=== PATIENT | female | born 1985 | race Caucasian/White ===

== ENCOUNTER 2016-11-29 14:15 | Outpatient (CLI) | payer BC ==
--- NOTE | 2016-11-29 17:52 | DIAGNOSTIC IMAGING REPORT ---
PROCEDURE: US OB 1ST TRIMESTER W/TRANSVAG INDICATION: NO HEART TONES TECHNIQUE: Mata scale, color, and spectral Doppler transabdominal sonographic images of the first trimester gravid uterus were obtained. COMPARISON: None. FINDINGS: Transvaginal and transabdominal SCANS: The gravid uterus is retroverted in position and contains hemorrhage and clot surrounding an irregular gestational sac. No heart tones were detected. The crown rump length corresponds to 6 weeks and 6 days. There is a 1.7 centimeter cyst on the right ovary. The cervix is closed at 3.6 cm in length. IMPRESSION: 1. demise. No heart tones detected.
== END 2016-11-29 23:00 | disposition home or self-care (01) ==
LOC: US SRH 14:15
DX: O02.1 Missed abortion (principal)